=== PATIENT | female | born 1990 | race Caucasian/White ===

== ENCOUNTER 2021-01-13 15:19 | Outpatient (CLI) | payer BC ==
--- NOTE | 2021-01-13 16:51 | Ultrasound Report ---
PROCEDURE: Pelvic w/Transvaginal INDICATIONS: ANOVULATION,PREMATURE MENARCHE,HYPERANDROGENISM TECHNIQUE: Real-time scanning was performed of the pelvic organs, with image documentation. Additional endovagi nal scanning was necessary due to incomplete visualization of the adnexal and endometrial structures by transabdominal scanning. COMPARISON: None. FINDINGS: No pathologic free abdominal or pelvic fluid. Uterus: Uterus is normal in size at 7.8 x 3.1 x 5.8 cm. Arcuate appearance of the uterus. The endome trium measures 9 mm in combined thickness. Midline posterior subserosal fibroid measuring 6 x 6 x 4 mm. Ovaries: Right ovary measures 2.8 x 2.1 x 2.5 cm, with greater than 12 physiologic follicles. Left o vary measures 2.9 x 2.1 x 2.5 cm and there is a dominant follicle measuring 2.1 x 2.0 x 1.8 cm. Right ovarian volume 7.4 mm, and left ovarian volume 7.9 mm. IMPRESSION: Numerous (greater than 12) right ovarian follicles, which raises the possibility of polycystic ovary syndrome although only in the appropriate clinical and laboratory setting. Arcuate appearance of the uterus Uterine fibroid Reviewed by: Steven Womack MD on 01/13/2021 4:50 PM PST Approved by: Steven Womack MD on 01/13/2021 4:50 PM PST Station ID: [id number]
--- NOTE | 2021-01-13 16:51 | Ultrasound Report ---
PROCEDURE: Retroperitoneal INDICATIONS: ANOVULATION, PREMATURE MENARCHE, HYPERANDROGENISM TECHNIQUE: Real-time scanning was performed of the kidneys and bladder, with image documentation. COMPARISON: None. FINDINGS: Kidneys: Kidneys are normal in size. Right kidney measures 12.1 cm long; left kidney measures 11.7 cm long. Right renal cortical thickness is 0.9 cm; left renal cortical thickness is 1.3 cm. No berto d masses, hydronephrosis, or nephrolithiasis. Small left superior pole cyst measuring 1.2 cm. Bladder: Prevoid volume of 246 cc. Postvoid residual 5 cc. Both ureteral jets are seen. IMPRESSION: No hydronephrosis. Small left kidney superior pole cyst measuring 1.2 cm. This is difficult to further characterize give n its small size. This may be mildly complex. Consider follow-up renal ultrasound to demonstrate stab ility in size. Reviewed by: Oli Braun MD on 01/13/2021 4:50 PM PST Approved by: Oli Braun MD on 01/13/2021 4:50 PM PST Station ID: [id number]
== END 2021-01-13 15:20 | disposition home or self-care (01) ==
LOC: DI 15:19
PROVIDERS: ATTEND Obstetrics & Gynecology
DX: N97.0 Female infertility associated with anovulation (principal); E28.1 Androgen excess; D25.2 Subserosal leiomyoma of uterus; N28.1 Cyst of kidney, acquired

== ENCOUNTER 2021-05-19 16:52 | Outpatient (CLI) | payer BC ==
--- NOTE | 2021-05-20 09:37 | Ultrasound Report ---
PROCEDURE: Retroperitoneal Limited INDICATIONS: Follow-up renal cyst TECHNIQUE: Real-time scanning was performed of the retroperitoneal organs, with image documentation. COMPARISON: 01/13/2021 FINDINGS: Both kidneys are normal in size. Previously identified superior pole left renal cyst measures approxi mately 1.1 cm (previously 1.2 cm). This does have some low-level internal echoes but appears mostly a nechoic. IMPRESSION: No significant change in size of small mildly located cyst in the superior pole left kidney, which ap pears mostly anechoic with a few low-level internal echoes. Precautionary follow up in 12 months is r ecommended to document stability. Reviewed by: Dallas Persaud MD on 05/20/2021 9:35 AM PDT Approved by: Dallas Persaud MD on 05/20/2021 9:35 AM PDT Station ID: [id number]
== END 2021-05-19 16:53 | disposition home or self-care (01) ==
LOC: DI 16:52
PROVIDERS: ATTEND Obstetrics & Gynecology
DX: N28.1 Cyst of kidney, acquired (principal); E28.1 Androgen excess